=== PATIENT | female | born 1965 | race Caucasian/White ===

== ENCOUNTER 2022-11-09 15:53 | Emergency (ER) | payer BC, SELFPAY ==
[2022-11-09 15:54] VITALS: BP 161/93; PULSE 96; RESP 16; TEMP 37; O2SAT 98; BMI 30.9
--- NOTE | 2022-11-09 16:00 | EX.ED.DYSGE1 ---
HPI History of Present Illness Chief Complaint: Shortness of Breath Narrative Narrative: 57-year-old female here with shortness of breath. Also notes cough. Denies any bleeding diathesis, chest pain, syncope, palpitations. No sick contacts in her home. She does not smoke and denies any other medical problems The patient denies recent surgery in the last 4 weeks or immobilization in the last 3 days, denies previous diagnosis of DVT or PE, hemoptysis, unilateral leg swelling or malignancy with treatment the last 6 months. No estrogen use noted. PFSH PFSH Medical History no medical history Home Medications ibuprofen 600 mg tablet 600 mg PO Q6H ##20 04/17/14 [Rx Last Taken Unknown] ondansetron 4 mg disintegrating tablet 4 mg PO Q6H PRN PRN Nausea #10 tabs 07/18/14 [Rx Last Taken Unknown] benzonatate 100 mg capsule 100 mg PO TID PRN cough 7 days #21 caps 11/09/22 [Rx Last Taken Unknown] Allergy/AdvReac Type Severity Reaction Status Date / Time No Known Allergies Allergy Verified 11/09/22 15:54 Social History Smoking Status: Never smoker ROS ROS ED ROS Narrative Constitutional: Denies fever HEENT: Denies sore throat Neck: Denies neck pain Cardiovascular: Denies chest pain, syncope Respiratory: Endorses shortness of breath, cough GI: Denies nausea vomiting or abdominal pain : Denies changes in urinary habits Musculoskeletal: Denies muscle or joint pain Neurologic: Denies numbness weakness or loss of sensation Skin denies rash EXAM Physical Exam Narrative Exam Narrative: Nursing triage notes reviewed, Vital signs reviewed Constitutional: please see mdm HENT: MMM Eyes: Pupils equal round and reactive to light, Extraocular muscles intact Neck: No stridor, no JVD, full neck ROM Lungs: Clear to auscultation, No wheezing or rales. No increased work of breathing, no conversational dyspnea, no accessory muscle use, no nasal flaring. No respiratory distress noted Heart: Regular rate and rhythm, No murmurs, No rubs and No gallops, 2+ distal pulses (radial, femoral, posterior tibial) in all extremities Abdomen: Soft, there is no tenderness, rigidity, rebound or guarding, no obvious peritoneal signs, no palpable pulsatile abdominal masses, no auscultated abdominal bruit : No CVAT Extremities: No edema Neuro: No focal neurological deficits, cranial nerves II through XII intact, 5/5 strength in all extremities. Intact sensation to light touch in all extremities, 2+ reflexes bilateral patella dens. Normal gait. No ataxia. Skin: No rash or lesions noted Const Vital Signs: 11/09/22 15:54 11/09/22 16:30 11/09/22 16:32 Temperature 98.6 F Temperature Source Temporal Pulse Rate 96 89 Respiratory Rate 16 18 Respiratory Effort Short of Breath Respiratory Depth Normal Respiratory Pattern Normal Blood Pressure 161/93 H 147/86 H Blood Pressure Mean 115 106 Pulse Ox 98 97 Oxygen Delivery Method Room Air Room Air Room Air 11/09/22 18:10 Temperature Temperature Source Pulse Rate 86 Respiratory Rate 20 H Respiratory Effort Respiratory Depth Respiratory Pattern Blood Pressure 144/82 H Blood Pressure Mean 102 Pulse Ox 93 Oxygen Delivery Method Room Air MDM MDM MDM Narrative Medical decision making narrative: Chief Complaint: Shortness of breath, cough External records reviewed: No recent events imaging of the chest I considered: COVID, flu, pneumonia, anemia, ACS, arrhythmia, PE I considered obtaining a CT of the chest however thought this was unnecessary given the patient's low risk Wells score, low clinical gestalt for VTE. I did obtain labs, imaging and EKG to rule out anemia, pneumonia, ACS, arrhythmia, COVID, flu. No signs of significant anemia. COVID test was positive. EKG without evidence of myocardial ischemia, arrhythmia or signs of right heart strain to suggest VTE. No significant arrhythmia noted on EKG. No evidence of pneumonia on chest x-ray did show bibasilar atelectasis likely secondary to COVID. No sniffing anemia on labs. No significant myocardial ischemia on labs. Patient was ambulated without significant hypoxia however she did drop between 91 to 92%. I had a shared decision-making discussion with the patient. I discussed admission for observation versus discharge. Patient chose to be discharged. We planned for her to have a home pulse oximetry monitor which she will obtain [id number]. She was instructed to return to the ED for PO2 remained consistently below 92%. She was instructed on mask wearing, handwashing and social distancing instructions. Patient. Plan is appropriate for discharge. Factors affecting care: None Social determinants of health: Poor access to care Shared decision making: I will have a discussion with the patient and or visitors regarding risk/benefits of further testing or admission. They will be made aware of of the risk/benefits inherent in this decision they will be given the opportunity to voice understanding. Consults: None Lab Data Attestation: I reviewed the patient's lab results. Lab results narrative: CBC without leukocytosis, severe anemia, no thrombocytopenia. Troponin is negative, no evidence of myocardial ischemia BMP without evidence of significant electrolyte abnormalities (noted mild hypokalemia), no anion gap, no acute kidney injury. Labs: Laboratory Results - last 24 hr 11/09/22 11/09/22 16:21 16:21 WBC 3.4 L RBC 5.41 H Hgb 15.1 H Hct 47.1 H MCV 87.1 MCH 27.9 MCHC 32.1 RDW Std Deviation 43.7 RDW Coeff of Becky 13.7 Plt Count 188 MPV 10.2 Immature Gran % (Auto) 0.300 Neut % (Auto) 53.5 Lymph % (Auto) 32.8 Marshall % (Auto) 13.1 H Eos % (Auto) 0.0 Baso % (Auto) 0.3 Absolute Neuts (auto) 1.8 L Absolute Lymphs (auto) 1.10 Nucleated RBC % 0 Sodium 140 Potassium 3.4 L Chloride 102 Carbon Dioxide 30.0 Anion Gap 8 BUN 13 Creatinine 0.74 Estim Creat Clear Calc 76.39 Est GFR (MDRD) Af Amer 104 Est GFR (MDRD) Non-Af 86 BUN/Creatinine Ratio 17.5 Glucose 108 H Calcium 8.8 Troponin I High Sens 7 Radiography Chest X-Ray - ED: Read by ED Physician Diagnostic Testing: Clinical Impression(s) from Imaging Studies Chest X-Ray 11/09/22 16:15 IMPRESSION: Hypoinflated study with bibasilar infiltrates versus atelectasis. Recommend short-term follow-up. Electronically Signed: Moreno Escobar MD at 17:37 EST Reading Location ID and State: [facility] / [place] Tel , Service support , I have personally reviewed the patient's chest x-ray. Chest x-ray is unremarkable for pulmonary edema, pneumothorax, pneumonia or focal cardiopulmonary abnormality. EKG Initial EKG: Attestation: I personally reviewed and interpreted this EKG as follows: Comments: EKG with normal sinus rhythm, left ax deviation, no STEMI, no signs of right heart strain Discharge Plan Triage Chief Complaint: Shortness of Breath ED Provider: Pedro Cedillo Dx/Rx/DC Orders Clinical Impression: COVID-19, Acute hypokalemia Instructions: Coronavirus Disease 2019 (COVID-19): Overview, COVID-19: Lying in a Prone Position (Proning) Prescriptions: New benzonatate 100 mg capsule 100 mg PO TID PRN (Reason: cough) 7 Days Qty: 21 0RF No Action ibuprofen 600 MG tablet 600 mg PO Q6H Qty: 20 0RF ondansetron 4 MG tablet 4 mg PO Q6H PRN PRN (Reason: Nausea) Qty: 10 0RF Stand Alone Forms: ED Work / School Excuse Primary Care Provider: Care Physician,No Primary Referrals: Freeman Almanza MD [Non-Staff] - Activity Restrictions/Additional Instructions: Please take Tylenol, ibuprofen every 6 hours as needed for pain and inflammation control. Please take Tessalon Perles as prescribed. Disposition Disposition: Home, Self Care
--- NOTE | 2022-11-09 16:15 | RAD_ITS ---
INDICATION: Shortness of breath, cough EXAMINATION/TECHNIQUE: X-RAY - XR Chest 2 Views COMPARISON: None. FINDINGS: LINES/DEVICES: None. LUNGS: Low lung volumes with hazy bibasilar airspace opacities, no consolidations or pleural effusions. No vascular congestion. MEDIASTINUM AND CARDIOVASCULAR STRUCTURES: Cardiac silhouette not enlarged. Central airways and mediastinal contour are unremarkable. BONES AND SOFT TISSUES: Unremarkable. RAD/Chest PA and Lateral IMPRESSION: Hypoinflated study with bibasilar infiltrates versus atelectasis. Recommend short-term follow-up. Electronically Signed: Moreno Escobar MD at 17:37 EST ,
--- NOTE | 2022-11-09 16:15 | EKG12_ITS ---
Test Reason : SOB Blood Pressure : / mmHG Vent. Rate : 086 BPM Atrial Rate : 086 BPM P-R Int : 164 ms QRS Dur : 082 ms QT Int : 358 ms P-R-T Axes : 010 003 020 degrees QTc Int : 428 ms Normal sinus rhythm Septal infarct , age undetermined Abnormal ECG Confirmed by CLARISA COWART, OSCAR ([id number]), society editor JOSE HAAS ([id number]) on 11/11/2022 9:45:47 AM Referred By: [facility] Confirmed By:OSCAR MCKENNA MD
[2022-11-09] MEDS: Benzonatate 100 MG Capsule PO (16:21)
[2022-11-09 16:30] VITALS: BP 147/86; PULSE 89; RESP 18; O2SAT 97
[2022-11-09 16:32] VITALS: O2SAT 93
[2022-11-09 16:44] LABS: Absolute Neutrophil Count 1.8 X10^3/uL (2.0-7.7); Basophil# 0.01 X10^3/uL; Basophil% 0.3 % (0-1); Hematocrit 47.1 % (37-47); Hemoglobin 15.1 g/dL (12.0-15.0); Lymphocyte % 32.8 % (19-41); Mean Corp Hgb Conc 32.1 g/dL (32-36); Mean Corpuscular Hgb 27.9 pg (27.0-32.0); Mean Corpuscular Volume 87.1 fL (81-99); Mean Platelet Vol. 10.2 fl (6.2-12.0); Monocyte# 0.44 X10^3/uL; Monocyte% 13.1 % (0-10); NRBC Flagged by Analyzer 0 % (0-5); Neutrophil # 1.79 X10^3/uL (2.7-7.7); Neutrophil % 53.5 % (47-70); Platelet Count 188 K/mm3 (150-450); RBC Distribution Width CV 13.7 % (11.6-14.6); RBC Distribution Width SD 43.7 fl (35.1-43.9); Red Blood Count 5.41 M/mm3 (4.2-5.4); White Blood Count 3.4 K/mm3 (4.4-11.0)
[2022-11-09 17:02] LABS: Anion Gap 8 (5-15); BUN 13 mg/dL (7-18); BUN/Creat Ratio 17.5 RATIO (10-20); Calcium,Total 8.8 mg/dL (8.5-10.1); Chloride 102 mmol/L (98-107); Creatinine, Serum 0.74 mg/dL (0.55-1.02); EST Glomerular Filtration Rate 86 mL/min (>60); Est Glom Filt Rate - Afr Amer 104 mL/min (>60); Estimated Creatinine Clearance 76.39 ml/min; Glucose 108 mg/dL (74-106); Potassium 3.4 mmol/L (3.5-5.1); Sodium Level 140 mmol/L (136-145); Troponin-I HS 7 pg/mL (3.0-54.0)
[2022-11-09 17:34] VITALS: O2SAT 96
[2022-11-09 18:10] VITALS: BP 144/82; PULSE 86; RESP 20; O2SAT 93
[2022-11-09 19:11] VITALS: O2SAT 95
== END 2022-11-09 19:36 | disposition home or self-care (01) ==
PROVIDERS: Emergency Provider Emergency Medicine; Visit Provider Emergency Medicine
DX: U07.1 COVID-19 (principal); E87.6 Hypokalemia
CPT/HCPCS: 71046; 80048; 84484; 85025; 87428; 93005; 99283; A4216